=== PATIENT | female | born 1970 | race Asian ===

== ENCOUNTER 2017-12-11 15:26 | Emergency (ER) | payer BC ==
[~2017-12-11] VITALS: Ht 154.9 cm; Wt 53.5 kg
[2017-12-11 15:38] VITALS: Ht 154.9 cm; Wt 53.5 kg
[2017-12-11 18:26] LABS: UA SPECIFIC GRAVITY 1.015 (1.005-1.035); microscopic required? YES; urine erythrocyte TRACE (NEGATIVE)
[2017-12-11 18:45] LABS: AMPHETAMINE QUAL UR NONE DETECTED (NEG <=1000)
[2017-12-11 19:08] LABS: BASOPHIL % 0.5 % (0-2); PLATELET COUNT 222 x10^3mcL (130-400); RED CELL DISTRIBUTION WIDTH 13.6 % (11.5-14.5)
[2017-12-11 20:00] LABS: ALKALINE PHOSPHATASE 51 U/L (46-116); AST/SGOT 40 U/L (15-37); BILIRUBIN TOTAL 0.22 mg/dL (0.20-1.00); CARBON DIOXIDE 22.7 mmol/L (21-32); CHLORIDE SERUM 104 mmol/L (98-107); POTASSIUM SERUM 3.6 mmol/L (3.5-5.1); SODIUM SERUM 140 mmol/L (136-145); TOTAL PROTEIN, SERUM 7.5 g/dL (6.4-8.2)
[2017-12-11 20:15] LABS: GLUCOSE SERUM 1 mg/dL (74-106)
[2017-12-11 20:20] LABS: ALBUMIN 3.4 g/dL (3.4-5.0); ALT/SGPT 54 U/L (14-59); CALCIUM 8.5 mg/dL (8.5-10.1); CREATININE SERUM 0.6 mg/dL (0.6-1.0); GFR1 > 60 mL/min
[2017-12-11 20:42] VITALS: BP 112/73
== END 2017-12-11 20:42 | disposition home or self-care (01) ==
LOC: ED 15:26
PROVIDERS: Emergency Medicine
DX: B34.9 Viral infection, unspecified (principal)
CPT/HCPCS: 82962; 83880; 87804; J2405; J7030; J8597; Q0092

== ENCOUNTER 2019-08-20 21:32 | Emergency (ER) | payer BC ==
[~2019-08-20] VITALS: Ht 157.5 cm; Wt 60.4 kg
[2019-08-20 21:50] VITALS: Ht 157.5 cm; Wt 60.4 kg
[2019-08-20 22:31] LABS: BASOPHIL % 0.5 % (0-2); PLATELET COUNT 236 x10^3mcL (130-400); RED CELL DISTRIBUTION WIDTH 13.8 % (11.5-14.5)
[2019-08-20 22:57] LABS: CALCIUM 8.3 mg/dL (8.5-10.1); CHLORIDE SERUM 104 mmol/L (98-107); CREATININE SERUM 0.9 mg/dL (0.6-1.0); GFR1 > 60 mL/min; GLUCOSE SERUM 108 mg/dL (74-106); POTASSIUM SERUM 3.4 mmol/L (3.5-5.1); SODIUM SERUM 141 mmol/L (136-145)
[2019-08-20 23:02] LABS: ALBUMIN 3.6 g/dL (3.4-5.0); ALKALINE PHOSPHATASE 65 U/L (46-116); ALT/SGPT 41 U/L (14-59); AST/SGOT 27 U/L (15-37); BILIRUBIN TOTAL 0.3 mg/dL (0.20-1.00); TOTAL PROTEIN, SERUM 7.2 g/dL (6.4-8.2)
[2019-08-20 23:48] LABS: microscopic required? YES; urine erythrocyte 2+ (NEGATIVE)
[2019-08-21 00:43] VITALS: BP 110/70
== END 2019-08-21 00:43 | disposition home or self-care (01) ==
LOC: ED 21:32
PROVIDERS: Emergency Medicine
DX: E86.0 Dehydration (principal); N39.0 Urinary tract infection, site not specified; R51 Headache; R42 Dizziness and giddiness; R11.0 Nausea
CPT/HCPCS: J0696; J1200; J2765; J7030; J7060

== ENCOUNTER 2019-08-23 22:27 | Inpatient (IN) | payer BC ==
[~2019-08-23] VITALS: Ht 157.5 cm; Wt 58.5 kg
[2019-08-23 22:34] VITALS: Ht 157.5 cm; Wt 58.5 kg
[2019-08-23 23:28] LABS: BASOPHIL % 0.5 % (0-2); PLATELET COUNT 256 x10^3mcL (130-400); RED CELL DISTRIBUTION WIDTH 14.3 % (11.5-14.5)
[2019-08-23 23:32] LABS: CALCIUM 8.6 mg/dL (8.5-10.1); CARBON DIOXIDE 28.3 mmol/L (21-32); CHLORIDE SERUM 98 mmol/L (98-107); CREATININE SERUM 0.9 mg/dL (0.6-1.0); GFR1 > 60 mL/min; GLUCOSE SERUM 133 mg/dL (74-106); POTASSIUM SERUM 3.3 mmol/L (3.5-5.1); SODIUM SERUM 138 mmol/L (136-145)
[2019-08-23 23:37] LABS: ALBUMIN 4.1 g/dL (3.4-5.0); ALKALINE PHOSPHATASE 71 U/L (46-116); ALT/SGPT 50 U/L (14-59); AMYLASE 61 U/L (25-115); AST/SGOT 30 U/L (15-37); BILIRUBIN TOTAL 0.57 mg/dL (0.20-1.00); LIPASE 143 IU/L (73-393); MAGNESIUM 2.1 mg/dL (1.8-2.4); TOTAL PROTEIN, SERUM 8.2 g/dL (6.4-8.2)
[2019-08-24 00:23] LABS: microscopic required? YES; urine erythrocyte 1+ (NEGATIVE)
[2019-08-24 02:56] LABS: FREE T4 1.05 ng/dL (0.76-1.46); FREE THYROXINE INDEX 3.1 ug/dL (1.4-4.5); T4(THYROXINE) 8.8 ug/dL (4.7-13.3)
[2019-08-24 02:57] LABS: AMPHETAMINE QUAL UR NONE DETECTED (See below)
[2019-08-24 03:04] VITALS: BP 123/78
[2019-08-24 03:18] LABS: T3 TOTAL 0.96 ng/mL
[2019-08-24 08:01] VITALS: BP 119/71
[2019-08-24 08:56] LABS: BASOPHIL % 0.3 % (0-2); CALCIUM 8.2 mg/dL (8.5-10.1); CHLORIDE SERUM 104 mmol/L (98-107); CREATININE SERUM 0.7 mg/dL (0.6-1.0); GFR1 > 60 mL/min; GLUCOSE SERUM 111 mg/dL (74-106); MAGNESIUM 1.9 mg/dL (1.8-2.4); PLATELET COUNT 244 x10^3mcL (130-400); POTASSIUM SERUM 3.7 mmol/L (3.5-5.1); SODIUM SERUM 139 mmol/L (136-145)
[2019-08-24 12:06] VITALS: BP 122/72
[2019-08-24] MEDS ORDERED: MECLIZINE HYD12.5 MG PO (14:29)
[2019-08-24] MEDS ORDERED: MECLIZINE HCL12.5 MG PO (15:25)
== END 2019-08-24 16:08 | disposition home or self-care (01) | DRG 74 ==
LOC: ED 22:27 → MU 08-24 02:28
PROVIDERS: Emergency Medicine; ADMIT General Practice
DX: G90.8 Other disorders of autonomic nervous system (principal); E87.6 Hypokalemia; E83.51 Hypocalcemia; Z87.440 Personal history of urinary (tract) infections
CPT/HCPCS: 84439; G0378; J7030; J7042; J8597; Q0092